=== PATIENT | male | born 1960 ===

== ENCOUNTER 2017-07-05 11:04 | Emergency (ER) | payer OTHER ==
[2017-07-05 11:13] VITALS: BP 153/71; PULSE 80; TEMP 97.9; O2SAT 100
[2017-07-05 11:14] VITALS: BMI 25.0
[2017-07-05 13:04] LABS: BASO % 0.4 % (0.0-2.0); EOS # 0.5 K/uL (0.0-0.7); EOS % 3.9 % (0.0-4.0); LYMPH # 2.3 K/uL (1.0-4.3); MEAN CELL VOLUME 90.3 fl (80.0-94.0); MEAN CORPUSCULAR HEMOGLOBIN 30.8 pg (27.0-31.0); MEAN CORPUSCULAR HGB CONC 34.1 g/dL (33.0-37.0); MEAN PLATELET VOLUME 9.2 fl (7.2-11.7); MONO # 1.3 K/uL (0.0-0.8); MONO % 10.2 % (0.0-10.0); NEUT # 8.2 K/uL (1.8-7.0); NEUT % 66.5 % (50.0-75.0); NRBC % 0.1 % (0.0-0.0); RED CELL DISTRIBUTION WIDTH 13.7 % (11.5-14.5); WHITE BLOOD COUNT 12.3 K/uL (4.8-10.8)
--- NOTE | 2017-07-05 13:04 | RAD ---
PROCEDURE: Right Ankle Radiographs. HISTORY: injury COMPARISON: None FINDINGS: BONES: Normal. No fracture. JOINTS: Normal. No osteoarthritis. Ankle mortise maintained. Talar dome intact SOFT TISSUES: Eighty soft tissue swelling without distal tibial or talar abnormality OTHER FINDINGS: None. IMPRESSION: Soft tissue swelling without acute articular or osseous abnormality. Please note: No preliminary interpretation of this examination rendered by emergency department personnel (Physician and/or PA declined to provide preliminary report of their findings/ observations).
[2017-07-05 13:17] LABS: ALB/GLOB RATIO 1.8 (1.0-2.1); ALKALINE PHOSPHATASE 73 U/L (38-126); ALT/SGPT 31 U/L (21-72); AST/SGOT 16 U/L (17-59); BILIRUBIN,TOTAL 0.4 mg/dl (0.2-1.3); BLOOD UREA NITROGEN 18 mg/dl (9-20); CALCIUM 9.4 mg/dL (8.4-10.2); CARBON DIOXIDE 23 mmol/L (22-30); CHLORIDE 109 mmol/L (98-107); GFR AFRICAN-AMERICAN > 60; GLUCOSE,RANDOM 105 mg/dL (75-110); POTASSIUM 4.1 MMOL/L (3.6-5.0); SODIUM 143 mmol/l (132-148)
--- NOTE | 2017-07-05 14:02 | ED PDOC ---
Lower Extremity Pain/Injury Time Seen by Provider: 07/05/17 11:39 Chief Complaint (Nursing): Trauma Chief Complaint (Provider): leg injury History Per: Patient History/Exam Limitations: no limitations Additional Complaint(s): 57yo M in ED for eval of leg injury sustained yesterday -states a cinder block hit the medial aspect of his right lower leg last night noted immediate hematoma formation with swelling and pain with walking, applied ice and swelling improved, discoloration worsened and swelling now noted to ankle area with pain on ranging the ankle. no radiation of pain to remainder leg. no calf pain no numbness . no fever no chills no nausea or vomiting. - Risk Factors DVT Risk Factors: Pos: None Past Medical History Reviewed: Historical Data, Nursing Documentation, Vital Signs Vital Signs: Last Vital Signs Temp 97.9 F 07/05/17 11:13 Pulse 80 07/05/17 11:13 Resp BP 153/71 H 07/05/17 11:13 Pulse Ox 100 07/05/17 11:13 - Medical History PMH: Hypercholesterolemia - Family History Family History: States: No Known Family Hx - Home Medications Home Medications: Ambulatory Orders Medication Instructions Recorded Sulfamethoxazole/Trimethoprim 1 tab PO BID #14 tab 07/05/17 [Bactrim DS 800 mg-160 mg] - Allergies Allergies/Adverse Reactions: Allergies Allergy/AdvReac Type Severity Reaction Status Date / Time Penicillins Allergy RASH Verified 07/05/17 11:36 Review of Systems ROS Statement: Except As Marked, All Systems Reviewed And Found Negative Musculoskeletal: Positive for: Leg Pain Physical Exam - Reviewed Nursing Documentation Reviewed: Yes Vital Signs Reviewed: Yes - Physical Exam Appears: Positive for: Well, Non-toxic, No Acute Distress Skin: Positive for: Normal Color, Warm, DRY Cardiovascular/Chest: Positive for: Regular Rate, Rhythm Respiratory: Positive for: CNT, Normal Breath Sounds Extremity: Positive for: Other (right lower leg: ankle swelling, bruising, swelling to right medial aspect of lower leg with hematoma formation warmth and tenderness. FROM of digits, limited ROM of ankle. (-) paraesesthia, pulseness, pain out of porpotion. (+) pallor (+) purple. ) Neurologic/Psych: Positive for: Alert, Oriented - Laboratory Results Result Diagrams: 07/05/17 12:59 07/05/17 12:59 - ECG O2 Sat by Pulse Oximetry: 100 - Progress ED Course And Treament: Orders Category Date Time Status CMP [COMP METABOLIC PANEL] Stat Chem 07/05/17 12:59 Completed CBC (WITH DIFFERENTIAL) Stat EVELIA 07/05/17 12:59 Completed ANKLE RIGHT 3 VIEWS ROUTINE [RAD] Stat Radiology 07/05/17 12:03 Completed TIBIA FIBULA RIGHT [RAD] Stat Radiology 07/05/17 12:03 Taken DUPLEX LOWER EXTRM VEIN RIGHT [US] Stat US 07/05/17 12:03 Ordered Medical Decision Making Medical Decision Making: US:IMPRESSION: No evidence of deep venous thrombosis in right lower extremity. Hematoma identified in distal right lower extremity corresponding to area of local swelling. xray : IMPRESSION: Soft tissue swelling without acute articular or osseous abnormality. Pt without evidence of deep hematoma based on US. no indication of fx on xray. pt with very likelihood of compartment syndrome. case discussed to MD Meli PT will be d.c with f.u with clinic, and ice to area for swelling and bactrim ( PCN allergy) for superficial skin infection. Vital Signs - 24 hr 07/05/17 07/05/17 11:13 14:09 Temperature 97.9 F Pulse Rate 80 Blood Pressure 153/71 H O2 Sat by Pulse 100 100 Oximetry Most Recent Lab Values WBC 12.3 K/uL (4.8-10.8) H 07/05/17 12:59 RBC 5.54 Mil/uL (4.40-5.90) 07/05/17 12:59 Hgb 17.1 g/dL (12.0-18.0) 07/05/17 12:59 Hct 50.0 % (35.0-51.0) 07/05/17 12:59 MCV 90.3 fl (80.0-94.0) 07/05/17 12:59 MCH 30.8 pg (27.0-31.0) 07/05/17 12:59 MCHC 34.1 g/dL (33.0-37.0) 07/05/17 12:59 RDW 13.7 % (11.5-14.5) 07/05/17 12:59 Plt Count 177 K/uL (130-400) 07/05/17 12:59 MPV 9.2 fl (7.2-11.7) 07/05/17 12:59 Neut % (Auto) 66.5 % (50.0-75.0) 07/05/17 12:59 Lymph % (Auto) 19.0 % (20.0-40.0) L 07/05/17 12:59 Iron % (Auto) 10.2 % (0.0-10.0) H 07/05/17 12:59 Eos % (Auto) 3.9 % (0.0-4.0) 07/05/17 12:59 Baso % (Auto) 0.4 % (0.0-2.0) 07/05/17 12:59 Neut # 8.2 K/uL (1.8-7.0) H 07/05/17 12:59 Lymph # 2.3 K/uL (1.0-4.3) 07/05/17 12:59 Iron # 1.3 K/uL (0.0-0.8) H 07/05/17 12:59 Eos # 0.5 K/uL (0.0-0.7) 07/05/17 12:59 Baso # 0.0 K/uL (0.0-0.2) 07/05/17 12:59 Sodium 143 mmol/l (132-148) 07/05/17 12:59 Potassium 4.1 MMOL/L (3.6-5.0) 07/05/17 12:59 Chloride 109 mmol/L (98-107) H 07/05/17 12:59 Carbon Dioxide 23 mmol/L (22-30) 07/05/17 12:59 Anion Gap 15 (10-20) 07/05/17 12:59 BUN 18 mg/dl (9-20) 07/05/17 12:59 Creatinine 0.7 mg/dL (0.8-1.5) L 07/05/17 12:59 Est GFR ( Amer) > 60 07/05/17 12:59 Est GFR (Non-Af Amer) > 60 07/05/17 12:59 Random Glucose 105 mg/dL (75-110) 07/05/17 12:59 Calcium 9.4 mg/dL (8.4-10.2) 07/05/17 12:59 Total Bilirubin 0.4 mg/dl (0.2-1.3) 07/05/17 12:59 AST 16 U/L (17-59) L 07/05/17 12:59 ALT 31 U/L (21-72) 07/05/17 12:59 Alkaline Phosphatase 73 U/L (38-126) 07/05/17 12:59 Total Protein 7.0 G/DL (6.3-8.2) 07/05/17 12:59 Albumin 4.5 g/dL (3.5-5.0) 07/05/17 12:59 Globulin 2.5 gm/dL (2.2-3.9) 07/05/17 12:59 Albumin/Globulin Ratio 1.8 (1.0-2.1) 07/05/17 12:59 Disposition - Clinical Impression Clinical Impression: Traumatic hematoma of lower leg - Patient ED Disposition Is Patient to be Admitted: No Counseled Patient/Family Regarding: Studies Performed, Diagnosis, Need For Followup, Rx Given - Disposition Referrals: [facility] [Outside] [facility] [place] [Outside] [facility] [Outside] Disposition: Routine/Home Disposition Time: 14:51 Condition: STABLE Prescriptions: Sulfamethoxazole/Trimethoprim [Bactrim DS 800 mg-160 mg] 1 tab PO BID #14 tab Forms: [facility] [employer] ([place])
--- NOTE | 2017-07-05 14:34 | US ---
PROCEDURE: Right lower extremity venous duplex Doppler. HISTORY: swelling after cinder block injury COMPARISON: None available. TECHNIQUE: Common femoral, superficial femoral, popliteal and posterior tibial veins were evaluated. Flow was assessed with color Doppler, compressibility, assessment of phasic flow and augmentation response. FINDINGS: COMMON FEMORAL VEIN: Unremarkable. SUPERFICIAL FEMORAL VEIN: Unremarkable. POPLITEAL VEIN: Unremarkable. POSTERIOR TIBIAL VEIN: Unremarkable. OTHER FINDINGS: Localized complex fluid collection in subcutaneous soft tissues over medial aspect of distal right lower extremity measuring approximately 6.7 x 1.9 cm consistent with hematoma. IMPRESSION: No evidence of deep venous thrombosis in right lower extremity. Hematoma identified in distal right lower extremity corresponding to area of local swelling.
[2017-07-05] MEDS ORDERED: Silver Sulfadiazine 1% Cream (20 gm) TOP ONE (15:53)
[2017-07-05] MEDS ORDERED: Povidone Iodine Topical 10% Sol TOP ONE (15:53)
--- NOTE | 2017-07-05 15:54 | RAD ---
PROCEDURE: Radiographs of the right tibia and fibula. HISTORY: injury COMPARISON: None available. TECHNIQUE: Frontal and lateral views obtained. FINDINGS: BONES: No fracture or destructive lesion. JOINT SPACES: Unremarkable. OTHER FINDINGS: None. IMPRESSION: Unremarkable radiographs of the right tibia and fibula.
--- NOTE | 2017-07-05 15:55 | CP.PCM.CON ---
History of Present Illness - History of Present Illness History of Present Illness: 57 year old male with PMH of hypercholesterolemia was evaluated in the ED for right leg injury. Patient reports that a cement block hit his leg on 07/04/17. He reports the next morning, he was in pain rating the pain 6/10 and describes the pain as a throbbing pain. He reports the blisters forming on the inside of his legs the next day. He denies any tingling or numbness. He denies n/v/sob/cp/ chills/f. ALL: Penicillin MEDS: see medication list FH: no known family history SH: denies smoking, drinking or ilicit drug use PSH: none Past Patient History - Past Social History Smoking Status: Heavy Smoker > 10 Cigarettes Daily - CARDIAC Hx Hypercholesterolemia: Yes - PSYCHIATRIC Hx Substance Use: No - SURGICAL HISTORY Hx Surgeries: No Meds Home Medications: Home Medication List Medication Instructions Recorded Confirmed Type Sulfamethoxazole/Trimethoprim 1 tab PO BID #14 tab 07/05/17 Rx [Bactrim DS 800 mg-160 mg] Allergies/Adverse Reactions: Allergies Allergy/AdvReac Type Severity Reaction Status Date / Time Penicillins Allergy RASH Verified 07/05/17 11:36 - Medications Medications: Current Medications Povidone Iodine (Betadine 10% Topical Soln) 10 ml TOP ONCE ONE Stop: 07/05/17 15:54 Silver Sulfadiazine (Silvadene 1% 20 Gm) 10 ea TOP ONCE ONE Stop: 07/05/17 15:54 Physical Exam - Constitutional Appears: Well, Non-toxic, No Acute Distress - Extremities Exam Additional comments: Lower extremity right focused: Vasc: DP and PT 2/4 bilaterally, CFT<3 seconds, temperature gradient WNL, digital hair present, no edema noted Ortho: MM is 5/5 in all four compartments, moderate pain with palpation to the medial calf where blister and hematoma is present, negative homman sign, negative barragan test, patient able to wiggles toes. no pain with palpation to the surrounding tendons including extensors and flexors. Neuro: protective and light sensation intact Derm: hematoma noted to the medial lower 1/3 leg measuring approximately 5cm x5cm with large bullae overlying hematoma filled with serous sangious fluid measuring approximately 2.5x2.5cm and intact. No open lesions noted, no clinical signs of infection, no indication for compartment syndrom - Neurological Exam Neurological exam: Alert, Oriented x3 - Psychiatric Exam Psychiatric exam: Agitated, Normal Affect - Skin Skin Exam: Normal Color Results - Vital Signs Recent Vital Signs: Last Vital Signs Temp 97.9 F 07/05/17 11:13 Pulse 80 07/05/17 11:13 Resp BP 153/71 H 07/05/17 11:13 Pulse Ox 100 07/05/17 14:52 - Labs Result Diagrams: 07/05/17 12:59 07/05/17 12:59 Labs: Laboratory Results - last 24 hr 07/05/17 07/05/17 12:59 12:59 WBC 12.3 H RBC 5.54 Hgb 17.1 Hct 50.0 MCV 90.3 MCH 30.8 MCHC 34.1 RDW 13.7 Plt Count 177 MPV 9.2 Neut % (Auto) 66.5 Lymph % (Auto) 19.0 L [place] % (Auto) 10.2 H Eos % (Auto) 3.9 Baso % (Auto) 0.4 Neut # 8.2 H Lymph # 2.3 [place] # 1.3 H Eos # 0.5 Baso # 0.0 Sodium 143 Potassium 4.1 Chloride 109 H Carbon Dioxide 23 Anion Gap 15 BUN 18 Creatinine 0.7 L Est GFR ( Amer) > 60 Est GFR (Non-Af Amer) > 60 Random Glucose 105 Calcium 9.4 Total Bilirubin 0.4 AST 16 L ALT 31 Alkaline Phosphatase 73 Total Protein 7.0 Albumin 4.5 Globulin 2.5 Albumin/Globulin Ratio 1.8 Assessment & Plan - Assessment and Plan (Free Text) Assessment: 57 year old male with PMH of hypercholesterolemia in the ED for right bruising and bullae formation secondary to trauma- not infected Plan: Patient examined and evaluated Discussed plan in detail with attending Dr. Osullivan Labs, charts, vitals reviewed- afebrile US- negative for DVT X-ray negative for bony pathology, fracture Area of bullae was cleansed with betadine, lanced bullae using a 18g needle without complications, patient tolerated the procedure well Expressed about 1 cc of fluid from bullae, cleansed area with betadine and dressed with silvedene, 4x4, kerlix, BIANCA RICE protocol instructed Instructed to change dressing every other day as shown in ED WIll f/u in clinic in 1 week to check wound No indications of compartment syndrome Thank you for the consult
[2017-07-05] MEDS ORDERED: Silver Sulfadiazine 1% CREAM (50 gm) ONE (16:00)
[2017-07-05] MEDS ORDERED: Povidone Iodine Topical 10% Sol ONE (16:00)
== END 2017-07-05 14:51 | disposition home or self-care (01) ==
LOC: H.ER 11:04
DX: S80.12XA Contusion of left lower leg, initial encounter (principal); W22.8XXA Striking against or struck by other objects, initial encounter; Y92.89 Other specified places as the place of occurrence of the external cause; E78.00 Pure hypercholesterolemia, unspecified; L08.9 Local infection of the skin and subcutaneous tissue, unspecified; Z88.0 Allergy status to penicillin

== ENCOUNTER 2017-07-10 18:11 | Emergency (ER) | payer BC, OTHER ==
[2017-07-10 18:11] VITALS: BMI 25.0
[2017-07-10 18:48] VITALS: BP 131/79; PULSE 99; RESP 18; TEMP 97.4; O2SAT 100
--- NOTE | 2017-07-10 19:58 | ED PDOC ---
Lower Extremity Pain/Injury Time Seen by Provider: 07/10/17 19:00 Chief Complaint (Nursing): Lower Extremity Problem/Injury Chief Complaint (Provider): Lower Extremity Injury History Per: Patient History/Exam Limitations: no limitations Onset/Duration Of Symptoms: Days Current Symptoms Are (Timing): Still Present Additional Complaint(s): Patient is a 57 y/o male with a past medical history of hypercholesterolemia who presents to the ED complaining of worsened pain and swelling of right lower leg. Patient reports a cinder block slipped from his hand and fell on his leg 6 days ago, scratching it. He noted immediate hematoma with pain, and came in to the ED on 07/05/2017. An X-Ray was taken which came back with no indications of breakage, and patient was discharged with antibiotics which he claims to have been taking. Patient decided to come in today because of worsened pain and wound appeared more "black". Patient denies any fever or vomiting. PCP: out of the area Past Medical History Reviewed: Historical Data, Nursing Documentation, Vital Signs Vital Signs: Last Vital Signs Temp 97.4 F L 07/10/17 18:45 Pulse 99 H 07/10/17 18:45 Resp 18 07/10/17 18:45 BP 131/79 07/10/17 18:45 Pulse Ox 100 07/10/17 18:45 - Medical History PMH: Hypercholesterolemia - Surgical History Surgical History: No Surg Hx - Family History Family History: States: No Known Family Hx, Unknown Family Hx - Social History Current smoker - smoking cessation education provided: Yes (1 pack per day) Alcohol: None Drugs: Denies - Home Medications Home Medications: Ambulatory Orders Medication Instructions Recorded Sulfamethoxazole/Trimethoprim 1 tab PO BID #14 tab 07/05/17 [Bactrim DS 800 mg-160 mg] - Allergies Allergies/Adverse Reactions: Allergies Allergy/AdvReac Type Severity Reaction Status Date / Time Penicillins Allergy RASH Verified 07/10/17 18:45 Review of Systems ROS Statement: Except As Marked, All Systems Reviewed And Found Negative Constitutional: Negative for: Fever Gastrointestinal: Negative for: Vomiting Musculoskeletal: Positive for: Leg Pain (Right lower leg pain and swelling due to injury) Skin: Positive for: Bruising (Right lower leg) Physical Exam - Reviewed Nursing Documentation Reviewed: Yes Vital Signs Reviewed: Yes - Physical Exam Appears: Positive for: No Acute Distress Head Exam: Positive for: ATRAUMATIC, NORMOCEPHALIC Skin: Positive for: Warm, Dry Eye Exam: Positive for: Normal appearance, EOMI, PERRL Neck: Positive for: Normal, Painless ROM, Supple Cardiovascular/Chest: Positive for: Regular Rate, Rhythm. Negative for: Murmur Respiratory: Positive for: Normal Breath Sounds. Negative for: Respiratory Distress Pulses-Dorsalis Pedis (L): 2+ Pulses-Dorsalis Pedis (R): 2+ Gastrointestinal/Abdominal: Positive for: Normal Exam, Soft. Negative for: Tenderness Back: Positive for: Normal Inspection. Negative for: L CVA Tenderness, R CVA Tenderness, Vertebral Tenderness Extremity: Positive for: Normal ROM, Capillary Refill (less than 2 seconds), Other (Right lower leg medial aspect swelling, slight hematoma, scab formation surrounded with discoloration. Negative cellulitis, negative drainage). Negative for: Pedal Edema, Calf Tenderness, Deformity Neurologic/Psych: Positive for: Alert, Oriented (x3), Other (negative parasthesia). Negative for: Motor/Sensory Deficits Comments: No signs of compartment syndrome - Laboratory Results Result Diagrams: 07/10/17 19:49 07/10/17 20:20 - ECG O2 Sat by Pulse Oximetry: 100 (RA) Pulse Ox Interpretation: Normal Medical Decision Making Medical Decision Making: Time: 19:33 Initial Impression: leg swelling/infection Initial Plan: --CMP --CBC --Toradol 30 mg IV --Blood culture Time: 19:34 -Podiatry consult Time: 21:30 -Patient stable for discharge, follow up with podiatry on Sunday Upon provider evaluation patient is medically stable, and requires no further treatment in the ED at this time. Patient will be discharged. Counseling was provided and all questions were answered regarding diagnosis and need for follow up with podiatry clinic on Sunday with Dr. Osullivan. There is agreement to discharge plan. Return if symptoms persist or worsen. Scribe Attestation: Documented by Siobhan Gibbs, acting as a scribe for Gauri Bowesr MD Provider Scribe Attestation: All medical record entries made by the Scribe were at my direction and personally dictated by me. I have reviewed the chart and agree that the record accurately reflects my personal performance of the history, physical exam, medical decision making, and the department course for this patient. I have also personally directed, reviewed, and agree with the discharge instructions and disposition. Disposition - Clinical Impression Clinical Impression: Hematoma, Bullae - Patient ED Disposition Is Patient to be Admitted: No Counseled Patient/Family Regarding: Studies Performed, Diagnosis, Need For Followup - Disposition Referrals: [facility] [Outside] [facility]ry [facility] [Outside] Disposition: Routine/Home Disposition Time: 21:00 Condition: IMPROVED Additional Instructions: follow up with podiatry clinic on Sunday with Dr Osullivan. return to the ED with any worsening or concerning symptoms continue daily dressing changes and oral antibiotics Instructions: Hematoma (ED) Forms: [employer] ([place]ian)
[2017-07-10 20:00] LABS: BASO # 0.1 K/uL (0.0-0.2); BASO % 0.7 % (0.0-2.0); EOS # 0.6 K/uL (0.0-0.7); EOS % 4.8 % (0.0-4.0); HEMOGLOBIN 17.8 g/dL (12.0-18.0); LYMPH # 2.2 K/uL (1.0-4.3); LYMPH % 18.9 % (20.0-40.0); MEAN CORPUSCULAR HEMOGLOBIN 30.9 pg (27.0-31.0); MEAN CORPUSCULAR HGB CONC 33.9 g/dL (33.0-37.0); MEAN PLATELET VOLUME 8.8 fl (7.2-11.7); MONO # 1.2 K/uL (0.0-0.8); MONO % 10.5 % (0.0-10.0); NEUT # 7.6 K/uL (1.8-7.0); NEUT % 65.1 % (50.0-75.0); RBC 5.76 Mil/uL (4.40-5.90); RED CELL DISTRIBUTION WIDTH 13.7 % (11.5-14.5); WHITE BLOOD COUNT 11.7 K/uL (4.8-10.8)
[2017-07-10 20:14] LABS: ALB/GLOB RATIO 1.7 (1.0-2.1); ALBUMIN 4.9 g/dL (3.5-5.0); ALT/SGPT 36 U/L (21-72); AST/SGOT 22 U/L (17-59); BLOOD UREA NITROGEN 20 mg/dl (9-20); CALCIUM 9.6 mg/dL (8.4-10.2); GFR AFRICAN-AMERICAN > 60; GFR NON-AFRICAN AMERICAN > 60
--- NOTE | 2017-07-10 20:25 | CP.PCM.CON ---
History of Present Illness - History of Present Illness History of Present Illness: Podiatry Consult Note - Dr. Osullivan 57 year old male patient PMHx hypercholesterolemia seen in the ED concerning right leg injury. Patient seen resting comfortably, AAOx3 and NAD. Patient states he was last seen in the ED on 07/05/17 after a cinder block fell on his leg a day prior to presentation. Patient admits to continued dull/achy pain to the inside of his right leg, however states the pain has decreased since the date of injury. Patient states a there was a blister on the inside of his right leg that was popped during his previous ED visit--patient admits to seeing some drainage yesterday but none today. Patient states he has been compliant with daily dressing changes of Silvadene and gauze. Patient has been icing the area 15 minutes on/15 minutes off for 3 hours a day, daily. Patient states the pain and swelling has improved. Patient believes his leg is getting better but was concerned due to increased discoloration, and states he was not able to make an appointment to follow up in the podiatry clinic. Patient denies any numbness, burning, or tingling. Patient denies N/V/F/D/C/SOB/calf pain. Offers no other pedal complaints at this time. Review of Systems - Review of Systems All systems: reviewed and no additional remarkable complaints except (as per HPI ) - Constitutional Constitutional: As Per HPI Past Patient History - Past Social History Alcohol: None Drugs: Denies - CARDIAC Hx Hypercholesterolemia: Yes - PSYCHIATRIC Hx Substance Use: No - SURGICAL HISTORY Hx Surgeries: No Meds Allergies/Adverse Reactions: Allergies Allergy/AdvReac Type Severity Reaction Status Date / Time Penicillins Allergy RASH Verified 07/10/17 18:45 Physical Exam - Constitutional Appears: Well, Non-toxic, No Acute Distress - Extremities Exam Additional comments: Right lower extremity focused physical exam Vasc: DP and PT pulses palpable 2/4. CFT <3 seconds to digits x5. Temperature gradient warm to warm. +1 pitting edema noted to medial aspect of right ankle extending from medial malleolus to medial aspect of calcaneus. Non-pitting edema noted to dorsolateral midfoot and medial aspect of leg proximal to medial malleolus under overlying ecchymosis. Pedal hair appreciated. Neuro: Protective and light sensation intact. No paresthesias noted. Derm: Hematoma noted to medial lower 1/3 of leg measuring approximately 5 x 5 cm with lanced bullae. Speckled ecchymosis noted surrounding hematoma and extending proximally to calf. Ecchymosis noted to dorsolateral midfoot. No clinical signs of infection noted at this time. Ortho: Tenderness to palpation hematoma and medial aspect of calcaneus. No pain on palpation noted to dorsolateral midfoot. No pain on palpation medial or lateral malleolus. No pain out of proportion noted. No indication of compartment syndrome at this time. - Neurological Exam Neurological exam: Alert, Oriented x3 - Psychiatric Exam Psychiatric exam: Normal Affect, Normal Mood Results - Vital Signs Recent Vital Signs: Last Vital Signs Temp 97.4 F L 07/10/17 18:45 Pulse 99 H 07/10/17 18:45 Resp 18 07/10/17 18:45 BP 131/79 07/10/17 18:45 Pulse Ox 100 07/10/17 20:24 - Labs Result Diagrams: 07/10/17 19:49 07/10/17 20:20 Labs: Laboratory Results - last 24 hr 07/10/17 19:49 WBC 11.7 H RBC 5.76 Hgb 17.8 Hct 52.5 H MCV 91.0 MCH 30.9 MCHC 33.9 RDW 13.7 Plt Count 191 MPV 8.8 Neut % (Auto) 65.1 Lymph % (Auto) 18.9 L [place] % (Auto) 10.5 H Eos % (Auto) 4.8 H Baso % (Auto) 0.7 Neut # 7.6 H Lymph # 2.2 [place] # 1.2 H Eos # 0.6 Baso # 0.1 Assessment & Plan - Assessment and Plan (Free Text) Assessment: 57 year old male patient PMHx hypercholesterolemia with right leg hematoma and bullae formation 2/2 trauma, stable/non-infected Plan: Patient seen and evaluated in ED Discussed with attending, Dr. Osullivan Labs and vitals reviewed - afebrile, WBC increased @ 11.7 however decreasing since previous visit (12.3 on 07/05/17) Discussed with patient right lower extremity healing as expected No indications of compartment syndrome noted at this time Advised patient to continue daily dressing changes of Silvadene + DSD Continue RICE therapy Continue taking Bactrim as scheduled Patient to follow up with Dr. Osullivan next week Sunday, 11/6 AM for evaluation of right lower extremity hematoma Patient advised to return to ED if symptoms worsen Stable from podiatry standpoint Thank you for the consult, please reconsult podiatry as needed
== END 2017-07-10 21:35 | disposition home or self-care (01) ==
LOC: H.ER 18:11
DX: L13.9 Bullous disorder, unspecified (principal); L08.9 Local infection of the skin and subcutaneous tissue, unspecified; E78.00 Pure hypercholesterolemia, unspecified; Z88.0 Allergy status to penicillin
CPT/HCPCS: 80053; 85025; 87040; 96374; 99283; J1885